=== PATIENT | female | born 1985 | race Caucasian/White ===

== ENCOUNTER 2020-02-10 09:53 | Emergency (ER) | payer SELFPAY | END 2020-02-10 10:00 | LOC: JD.ED 09:53 | DX: Z53.21 Procedure and treatment not carried out due to patient leaving prior to being seen by health care provider (principal) ==

== ENCOUNTER 2020-02-11 10:12 | Emergency (ER) | payer SELFPAY | END 2020-02-11 10:45 | disposition left against medical advice (07) | LOC: JD.ED 10:12 | DX: Z53.21 Procedure and treatment not carried out due to patient leaving prior to being seen by health care provider (principal) ==